=== PATIENT | male | born 1960 | race Caucasian/White ===

== ENCOUNTER 2021-09-24 20:25 | Emergency (ER) | payer BC, MEDICAID, SELFPAY ==
[~2021-09-24] VITALS: Ht 177.8 cm; Wt 127.0 kg
[2021-09-24 20:25] VITALS: BP_SYST 167
--- NOTE | 2021-09-24 20:30 | NUR ---
Patient came in to the ER to get evaluated, complaints of substernal chest pain x 1 day. Patient reports that last night, he woke up feeling like there was chest pain, described as pressure. Pain was nonradiating and nonexertional. The chest pain came again around 2 PM today and lasted for about 40 minutes and disappeared spontaneously. States he took his baby aspirin. Patient reports that the pain occurred again this evening lasted x 20 mins. Patient denies associated diaphoresis, palpitations shortness of breath, nausea, vomiting. Patient denies pain at this time. Denies fevers, chills, cough cold congestion, dysuria. Patient breathig easy, not in distress. Patient ambulated with steady gait. Awaiting ER MD to félix.
--- NOTE | 2021-09-24 20:30 | NUR ---
Patient triaged and placed in waiting room. VS checked and patient appears in no acute distress at this time. Accompanied by , awaiting available bed, and MD notified of need for MSE.
[2021-09-24] MEDS ORDERED: LISI10TA29 PO (20:46)
[2021-09-24] MEDS ORDERED: ASPIRIN 81 MG TAB.CHEW PO ONE (21:45)
[2021-09-24 22:11] LABS: BASOPHILS # (AUTO) 0.1 K/uL (0.0-0.2); BASOPHILS % (AUTO) 0.7 % (0.0-2.0); EOSINOPHILS # (AUTO) 0.2 K/uL (0.0-0.4); EOSINOPHILS % (AUTO) 2.1 % (0.0-4.0); HEMATOCRIT 48.1 % (36-54); HEMOGLOBIN 16.3 g/dL (14.0-18.0); LYMPHOCYTES # (AUTO) 2.7 K/uL (1.0-5.5); LYMPHOCYTES % (AUTO) 34.3 % (20.5-51.5); MEAN CORPUSCULAR HEMOGLOBIN 31 pg (27-31); MEAN CORPUSCULAR HGB CONC 34 % (32-36); MEAN CORPUSCULAR VOLUME 91 fL (79.0-98.0); MONOCYTES # (AUTO) 0.7 K/uL (0.0-1.0); MONOCYTES % (AUTO) 9.6 % (1.7-9.3); NEUTROPHILS # (AUTO) 4.1 K/uL (1.8-7.7); NEUTROPHILS % (AUTO) 53.3 % (40.0-70.0); PLATELET COUNT (AUTO) 212 K/uL (130-430); RED BLOOD CELL COUNT(AUTO) 5.26 MIL/uL (4.2-6.2); RED CELL DISTRIBUTION WIDTH 13.5 % (9.0-15.0); WHITE BLOOD COUNT (AUTO) 7.8 K/uL (4.8-10.8)
[2021-09-24 22:18] LABS: CALCIUM 8.8 mg/dL (8.4-11.0); CREATININE 0.96 mg/dL (0.55-1.30); POTASSIUM 4.4 mmol/L (3.5-5.1)
[2021-09-24 22:26] LABS: ALBUMIN 3.7 g/dL (3.4-4.8); TOTAL BILIRUBIN 0.4 mg/dL (0.0-1.0)
--- NOTE | 2021-09-24 22:51 | NUR ---
JENNA Barragan examining patient.
[2021-09-25] MEDS ORDERED: ASPI-1155 PO (00:50)
[2021-09-25 01:05] VITALS: BP_SYST 162
--- NOTE | 2021-09-25 01:05 | NUR ---
Patient given written and verbal discharge instructions and verbalizes understanding. ER MD discussed with patient the results and treatment provided. Patient in stable condition. Rx of Aspirin sent to pharmacy of choice by ER MD. Patient educated on pain management and to follow up with PMD/ Production Control Clerk. Pain Scale 0/10. Opportunity for questions provided and answered.
== END 2021-09-25 01:05 | disposition home or self-care (01) ==
LOC: SED 20:25
DX: R07.2 Precordial pain (principal); I10 Essential (primary) hypertension; Z79.899 Other long term (current) drug therapy
CPT/HCPCS: 36415; 71045; 80053; 83880; 84484; 85025; 93005; 99285